=== PATIENT | male | born 1960 | race Caucasian/White ===

== ENCOUNTER → 2017-02-27 | Outpatient (CLI) | payer BC ==
[~2017-02-27] MED LIST: DXY100 PO; SNG10 PO; WARF3TAB PO; XPNINS1255 INH
[2017-02-27 10:01] LABS: BLOOD UREA NITROGEN 9 mg/dl (7-18); BUN/CREATININE RATIO 12.4 (10-20); CALCIUM 8.3 mg/dl (8.5-10.1); CARBON DIOXIDE 30 mmol/L (21-32); CHLORIDE 104 mmol/L (98-107); CREATININE 0.76 mg/dl (0.60-1.40); GLUCOSE 94 mg/dl (70-99); POTASSIUM 3.8 mmol/L (3.5-5.1); SODIUM 140 mmol/L (136-145)
[2017-02-27 10:07] LABS: CHOLESTEROL 283 mg/dl (0-200); CHOLESTEROL/HDL RATIO 4.3; HDL CHOLESTEROL 66 mg/dl; LDL CHOLESTEROL CALCULATED 199 mg/dl; TRIGLYCERIDES 90 mg/dl (0-150); VERY LOW DENSITY LIPOPROT CALC 18 mg/dl
[2017-02-27 10:31] LABS: ESTIMATED AVERAGE GLUCOSE 120 mg/dl; HA1C FLAG Normal (Normal)
== END | disposition home or self-care (01) ==
LOC: C.LAB1850 07:39
PROVIDERS: ATTEND Internal Medicine
DX: E78.00 Pure hypercholesterolemia, unspecified (principal); R73.03 Prediabetes; Z12.5 Encounter for screening for malignant neoplasm of prostate

== ENCOUNTER → 2017-03-02 | Outpatient (CLI) | payer BC | END | disposition home or self-care (01) | LOC: C.LAB1850 09:37 | PROVIDERS: ATTEND Internal Medicine | DX: Z00.00 Encounter for general adult medical examination without abnormal findings (principal); Z11.59 Encounter for screening for other viral diseases ==

== ENCOUNTER → 2017-08-17 | Outpatient (CLI) | payer BC ==
[2017-08-17 11:59] LABS: BASO % 1.2 %; BASO ABS # 0.08 K/uL (0-0.2); COMPLETE YES; EOS % 5.5 %; HEMATOCRIT 44.6 % (42-52); IG% 0.1 %; LYMPH % 23.4 %; MEAN CELL VOLUME 91.2 fL (80-100); MEAN CORPUSCULAR HEMOGLOBIN 29.7 pg (25-34); MEAN CORPUSCULAR HGB CONC 32.5 g/dl (32-36); MEAN PLATELET VOLUME 10.9 fL (7.4-10.4); NEUT % 57.8 %; PLATELET COUNT 240 K/uL (130-400); RED BLOOD COUNT 4.89 M/uL (4.7-6.1); WHITE BLOOD COUNT 6.85 K/uL (4.8-10.8)
[2017-08-17 12:19] LABS: BLOOD UREA NITROGEN 9 mg/dl (7-18); BUN/CREATININE RATIO 11.8 (10-20); CALCIUM 8.7 mg/dl (8.5-10.1); CARBON DIOXIDE 27 mmol/L (21-32); CHLORIDE 104 mmol/L (98-107); CHOLESTEROL 291 mg/dl (0-200); CREATININE 0.79 mg/dl (0.60-1.40); GLUCOSE 95 mg/dl (70-99); POTASSIUM 3.5 mmol/L (3.5-5.1); SODIUM 137 mmol/L (136-145)
[2017-08-17 12:23] LABS: CHOLESTEROL/HDL RATIO 3.7; ESTIMATED AVERAGE GLUCOSE 114 mg/dl; HA1C FLAG Normal (Normal); HDL CHOLESTEROL 78 mg/dl; LDL CHOLESTEROL CALCULATED 190 mg/dl; TRIGLYCERIDES 114 mg/dl (0-150); VERY LOW DENSITY LIPOPROT CALC 23 mg/dl
== END | disposition home or self-care (01) ==
LOC: C.LABPBG 07:42
PROVIDERS: ATTEND Internal Medicine
DX: R73.01 Impaired fasting glucose (principal); E78.00 Pure hypercholesterolemia, unspecified; R73.03 Prediabetes; D68.51 Activated protein C resistance; D72.829 Elevated white blood cell count, unspecified

== ENCOUNTER 2021-01-04 08:09 | Observation (INO) ==
--- NOTE | 2020-12-24 10:04 | PAT Medication Instructions ---
Medication Instructions Date of Service December 24, 2020 Home Medications Medication Instructions Recorded levalbuterol HCl 1.25 mg/3 mL 1.25 mg INH Q4H PRN #75 ml 11/17/19 solution for nebulization levalbuterol HCl 1.25 mg/3 mL solution for nebulization 1.25 mg INH Q4H PRN albuterol sulfate 2 puff INHALATION 6XD PRN budesonide-formoterol [Symbicort] 2 puff INHALATION BID PRN warfarin 3 mg PO QPM ASK your prescriber and surgeon warfarin 3 mg PO QPM Take morning of surgery With a small sip of water, OTHERWISE NOTHING TO EAT OR DRINK AFTER MIDNIGHT: levalbuterol HCl 1.25 mg/3 mL solution for nebulization 1.25 mg INH Q4H PRN (if needed) albuterol sulfate 2 puff INHALATION 6XD PRN (use if needed; please bring rescue inhaler with you to hospital day of surgery if possible) budesonide-formoterol [Symbicort] 2 puff INHALATION BID PRN (if needed) Take evening before surgery levalbuterol HCl 1.25 mg/3 mL solution for nebulization 1.25 mg INH Q4H PRN (if needed) albuterol sulfate 2 puff INHALATION 6XD PRN(if needed) budesonide-formoterol [Symbicort] 2 puff INHALATION BID PRN (if needed) Other Notes If you have any questions please call us at [phone] or [phone] or [phone] or [phone]
--- NOTE | 2020-12-28 08:49 | Anesthesiology Consultation ---
Date of Service December 28, 2020 Assessment & Plan (1) Encounter for pre-operative examination: - COVID screening: Per assessment on 12/28: Travel screen negative, no known COVID-19 positive contacts or current COVID-19 related symptoms. Surgeon shailesh gaspar preop COVID testing (done 12/28 at PAT visit). Awaiting results. - PCP office visit note (12/23/20): "He will undergo radical prostatectomy for prostate cancer 01/04/21.. They will manage his chronic coumadin with lovenox.. He is otherwise deemed acceptable risk for surgery and is cleared pending anesthesia approval." - Check coags AM DOS Chart Review Chart Review: Acceptable Risk for Surgery and Patient seen in Pre Admission Testing Teaching & Discussion Pre-Anesthesia Teaching/Discussion Notes: Instructed NPO after midnight before surgery,except medications with 15 cc of water. Medication instructions provided according to the [facility] guidelines. History Surgery Operation Date: 01/04/21 10:50 Proposed Procedures p Robotic Laparoscopic Prostatectomy - Dieter Robles MD Height/Weight Height: 5 ft 7 in Weight: 95 kg Allergies Allergy/AdvReac Type Severity Reaction Status Date / Time bacitracin Allergy Intermediate Rash Verified 12/28/20 08:46 Medications Home Medications Medication Instructions Recorded Confirmed Last Taken levalbuterol HCl 1.25 mg/3 mL 1.25 mg INH Q4H PRN #75 ml 11/17/19 12/23/20 Unknown solution for nebulization albuterol sulfate 2 puff INHALATION 6XD PRN 12/23/20 12/23/20 Unknown budesonide-formoterol [Symbicort] 2 puff INHALATION BID PRN 12/23/20 12/23/20 Unknown warfarin 3 mg PO QPM 12/23/20 12/23/20 Unknown Past Medical History Medical History DVT (deep venous thrombosis) RLE (2006) Factor 5 Leiden mutation, heterozygous Dx 2007 > on warfarin since Obesity Prostate cancer Pulmonary emboli 2006 Reactive airway disease controlled > inhaler PRN Tremor of right hand Exercise / Class Metabolic Activity II 4-5 Yardwork/Stairs/Walk up hill (one flight of stairs (no chest pain, no sob)) Past Family History Family History Father COPD (chronic obstructive pulmonary disease) Mother Nephrolithiasis Sister Myocardial infarction Brother Prostate cancer Other Coronary heart disease Hypertension Denies family history of Ovarian cancer Breast cancer Colorectal cancer Past Surgical History Surgical History H/O right knee surgery x2 (1986) r/t osteomyelitis History of knee surgery Left arthroscopy Past Anesthesia History No Hx of Anesthesia Complications and No Family Hx of Anesthesia Complications History of PONV No Hx of PONV and No Hx of Motion Sickness Social History Smoking Status: Never smoker Do You Dip or Chew Tobacco: No (Quit 2006) Hx Alcohol Use: Yes Alcohol type: beer and wine alcohol intake frequency: a few times a month Hx Substance Use: No Review of Systems Occasional snoring. No witnessed apnea events. Patient denies chest pain, shortness of breath, dyspnea on exertion, fever, chills, cough, wheezing, palpitations. Physical Exam Vital Signs VITALS BP 164/93 > recheck 149/84 P 70 TEMP 98.3 SP02 97%RA RESP 18 PHYSICAL Full cervical extension range of motion. Full TMJ range of motion. TMD 3 finger breaths Mallampati Score 3 Dentition: upper front/molar missing Lungs: clear throughout to auscultation Cardiac: regular rate and rhythm, no murmurs noted Spine: normal Carotid arteries: negative bruit Extremities: no edema Testing Laboratory Results 12/28/20 09:17 12/28/20 09:17 Urine Color Yellow 12/28/20 09:17 Urine Appearance Clear (Clear) 12/28/20 09:17 Urine pH 6.5 (4.5-7.5) 12/28/20 09:17 Ur Specific [place] 1.017 (1.000-1.030) 12/28/20 09:17 Urine Protein Negative (Negative) 12/28/20 09:17 Urine Glucose (UA) Negative (Negative) 12/28/20 09:17 Urine Ketones Negative (Negative) 12/28/20 09:17 Urine Nitrite Negative (Negative) 12/28/20 09:17 Ur Leukocyte Esterase Negative (Negative) 12/28/20 09:17 Blood Type A Positive 12/28/20 09:17 Antibody Screen NEGATIVE 12/28/20 09:17 Electrocardiogram Date: 12/28/20 NSR at 71bpm. unconfirmed report. Chest X-Ray Date: 12/28/20 FINDINGS: Cardiac mediastinal and hilar silhouettes are within normal limits. No pneumothorax, pleural effusion, airspace consolidation or overt pulmonary edema. Degenerative changes of the shoulders and spine. IMPRESSION: No acute process.
--- NOTE | 2020-12-28 09:41 | XRay Report ---
XR chest Pre-admission PA/Lat HISTORY: 60 years-old Male pat reactive airway disease COMPARISON: Chest radiograph 09/12/2015 TECHNIQUE: PA and lateral views of the chest FINDINGS: Cardiac mediastinal and hilar silhouettes are within normal limits. No pneumothorax, pleural effusion , airspace consolidation or overt pulmonary edema. Degenerative changes of the shoulders and spine. IMPRESSION: No acute process. ACT 112: Negative or not required by law. The above report was generated using voice recognition software. It may contain grammatical, syntax o r spelling errors. Electronically signed by: Julio Renteria M.D. 12/28/2020 9:40 AM
[2020-12-28 10:16] LABS: Basophils # (auto) 0.06 K/uL (0-0.2); Basophils % (auto) 0.8 %; Eosinophils % (auto) 6.3 %; Hematocrit (blood only) 43.5 % (42-52); Hemoglobin 14.2 g/dL (14.0-18.0); Immature Granulocytes # (auto) 0.01 K/uL (0.00-0.02); Immature Granulocytes % (auto) 0.1 %; Lymphocytes # (auto) 1.82 K/uL (1.2-3.4); Lymphocytes % (auto) 22.8 %; Mean Corpuscular Hemoglobin 29.5 pg (25-34); Mean Corpuscular Hgb Conc 32.6 g/dL (32-36); Mean Corpuscular Volume 90.4 fL (80-100); Mean Platelet Volume 10.5 fL (7.4-10.4); Monocytes # (auto) 0.77 K/uL (0.11-0.59); Monocytes % (auto) 9.6 %; Neutrophils # (auto) 4.83 K/uL (1.4-6.5); Neutrophils % (auto) 60.4 %; Platelet Count 205 K/uL (130-400); RDW Coefficient of Variation 13.2 % (11.5-14.5); RDW Standard Deviation 43.3 fL (36.4-46.3); Red Blood Count 4.81 M/uL (4.7-6.1); White Blood Count 7.99 K/uL (4.8-10.8)
[2020-12-28 10:24] LABS: BUN Creatinine Ratio 13.1 (10-20); Calcium 8.4 mg/dl (8.5-10.1); Creatinine Clr Calc Pharmacy 102.7 ml/min; Est GFR (African American) 110.1; Potassium 4.1 mmol/L (3.5-5.1)
[2020-12-28 10:30] LABS: Appearance Urine Clear (Clear); Bilirubin Urine Negative (Negative); Blood Urine Negative (Negative); Color Urine Yellow; Glucose Urine UA Negative (Negative); Ketones Urine Negative (Negative); Leukocyte Esterase Urine Negative (Negative); Nitrite Urine Negative (Negative); Protein Urine Negative (Negative); Specific Gravity Urine 1.017 (1.000-1.030); Urobilinogen Urine Negative (Negative); pH Urine 6.5 (4.5-7.5)
--- NOTE | 2020-12-29 06:33 | Electrocardiogram Report ---
Test Reason : Blood Pressure : / mmHG Vent. Rate : 071 BPM Atrial Rate : 071 BPM P-R Int : 166 ms QRS Dur : 084 ms QT Int : 388 ms P-R-T Axes : 067 064 084 degrees QTc Int : 421 ms Normal sinus rhythm Normal ECG When compared with ECG of 12-SEP-2015 01:34, No significant change was found Confirmed by Tyrel Franco ([id number]) on 12/29/2020 6:33:35 AM Referred By: Dieter Robles Confirmed By:Tyrel Franco
[~2021-01-04 08:09] MED LIST changes: -DXY100 PO; +HEPARIN SOD 5,000 UNIT/0.5 ML VIAL SQ SCH; +LACTATED RINGER'S 1,000 ML IV SCH; -SNG10 PO; -WARF3TAB PO; -XPNINS1255 INH
[2021-01-04 08:55] LABS: INR 1.1 (0.9-1.1); Partial Thromboplastin Time 25.7 Seconds (21.0-31.0); Prothrombin Time 10.7 Seconds (9.0-12.0)
[2021-01-04] MEDS ORDERED: ATROPINE SULFATE 0.1 MG/ML 10ML SYR IV PRN (09:28)
[2021-01-04] MEDS ORDERED: ONDANSETRON INJ 2 MG/ML 2 ML VIAL IV PRN ×2 (09:28→15:29)
[2021-01-04] MEDS ORDERED: ePHEDrine sulfate 50 MG/ML AMP IV PRN (09:28)
--- NOTE | 2021-01-04 09:45 | History & Physical Bridge Note ---
Date of Service January 04, 2021 History & Physical Bridge Note I have examined the patient, reviewed the History & Physical and in the interval since the performance of the History & Physical I have noted the following changes of clinical significance: no changes noted
[2021-01-04] MEDS ORDERED: BUPIVACAINE 0.5 % 5 MG/1 ML MPF 30ML VIAL ONE (09:50)
[2021-01-04] MEDS ORDERED: ASPIRIN 81 MG ECTAB PO ONE (09:56)
[2021-01-04] MEDS ORDERED: ASPIRIN 81 MG ECTAB PO SCH (10:00)
[2021-01-04] MEDS ORDERED: fentaNYL citrate 100 MCG/2 ML VIAL ONE (10:03)
[2021-01-04] MEDS ORDERED: MIDAZOLAM HCL 1 MG/ML 2ML VIAL ONE (10:03)
[2021-01-04] MEDS ORDERED: BELLADONNA/OPIUM SUPP 60 MG SUPP PR ONE (10:44)
[2021-01-04] MEDS ORDERED: ROCURONIUM BROMIDE 10 MG/ML 5 ML VIAL IV ONE (11:23)
[2021-01-04] MEDS ORDERED: FLOSEAL HEMOSTATIC MATRIX 10ML TOP ONE (11:37)
[2021-01-04] MEDS ORDERED: SURGICEL ABSORB HEMOSTAT 2IN X 14IN TOP ONE (11:56)
[2021-01-04] MEDS ORDERED: PROPOFOL IV EMULSION 10 MG/ML 20 ML VIAL IV ONE (12:56)
[2021-01-04] MEDS ORDERED: NEOSTIGMINE METHYLSULFATE 5 MG/5 ML SYR ONE (12:56)
[2021-01-04] MEDS ORDERED: HYDROmorphone INJ 2 MG/ML SYR/VIAL ONE (12:56)
[2021-01-04] MEDS ORDERED: DEXAMETHASONE SOD INJ 4 MG/ML VIAL ONE (12:56)
[2021-01-04] MEDS ORDERED: GLYCOPYRROLATE 0.2 MG/ML VIAL ONE (12:56)
[2021-01-04] MEDS ORDERED: ONDANSETRON INJ 2 MG/ML 2 ML VIAL ONE (12:56)
--- NOTE | 2021-01-04 13:40 | Operative Report ---
PG Post Operative Report Pre & Post Diagnosis Operation Date: 01/04/21 10:50 Pre-Op Diagnosis: Prostate Cancer Post-Op Diagnosis: Prostate Cancer I identified the patient and participated in the time-out.: Yes Procedure Operation Date: 01/04/21 10:50 Actual Procedures p Robotic Assisted Laparoscopic Prostatectomy(Not Applicable) - Dieter Robles MD Surgeon Levar Robles MD Pack Mule Worker Cyndy Regan Estimated Blood Loss 100 Findings Consistent with Post-Op Diagnosis Specimens 1. Periprostatic fat 2. Left pelvic lymph nodes 3. Right pelvic lymph nodes 4. Prostate and seminal vesicles Description of Procedure The patient was identified in the preoperative holding area, appropriate informed consents were reviewed and completed, and he was transported to the operating suite. Subcutaneous heparin was administered in the pre-operative holding area. Upon arrival in the operating suite, he received appropriate antibiotics and general anesthesia. He was positioned in dorsal lithotomy, a B&O suppository was inserted after digital rectal exam, and he was prepped and draped in standard fashion. A Goins catheter was inserted in the sterile field. A Veress needle was passed per umbilicus with uniform insufflation of the abdomen to 15mmHg. He was placed in steep Trendelenburg position. A periumbilical incision was then made to accommodate a 12mm Visiport with 10mm 0degree laparoscope. Inspection of the abdomen was carried out, and there was no evidence of traumatic entry or injury secondary to the Veress needle. After confirming a clear anterior abdominal wall, ports were subsequently placed in standard robotic prostatectomy fashion without incident. To begin the robotic portion of the case, the left lateral aspect of the sigmoid was mobilized off of the left pelvic side wall to allow the pouch of Anuj to be appropriately visualized. I then made an incision in the pouch of Anuj, overlying the seminal vesicles. Both SVs as well as the ampullae of the vasa were entirely dissected, with the vasa transected 3cm from the prostate. The medial umbilical ligaments were then controlled with bipolar electrocautery just inferior to the umbilicus. Following cauterization, they were divided utilizing monopolar cautery. A peritoneal incision was carried from this locati on to the medial aspect of the internal inguinal rings bilaterally with care to avoid opening through the ring. This incision was concluded when the vas deferens was reached. Dissection of the bladder and prostate off of the posterior aspect of the pubic arch was completed allowing full visualization of the prostate. The fat overlying the prostate was removed en bloc and passed off the table as a specimen labeled "periprostatic fat". The endopelvic fascia was cleared during this portion of the procedure, and subsequently opened - first on the right and then the left. The incision through the endopelvic fascia began near the prostate-bladder junction and was carried to the apex with extreme care to preserve all lateral levator musculature as well as the periurethral musculature and sphincter complex. I additionally preserved the puboprostatic ligaments. I then controlled the DVC with a 3-0 V-lock suture in overlapping/figure of 8 fashion. The lymph node dissection was then conducted. External iliac vessels were identified on the pelvic side wall. The packet of fat and lymphatic tissue that resides just under the iliac vein was elevated and off of the vein with a split and roll technique. The packet was dissected laterally to the circumflex vein and distally to the obturator nerve which was preserved. The proximal aspect of the packet was carried towards the bifurcation of the iliac vessels. A combination of monopolar and bipolar cautery were used to assist with control. After completing the dissection on both sides, the packets were collected and passed off of the table as specimens labeled "pelvic lymph nodes". My attention then returned to the prostate, with identification of the bladder neck aided by gentle traction on the Goins catheter and lateral to medial pressure at the presumed level of the bladder neck with the robotic instruments. An anterior cystotomy was made, the Goins balloon deflated and the catheter guided through the incision to allow anterior retraction. I attempted to preserve maximal bladder neck musculature as I circumferentially dissected around the bladder neck. After incision through the posterior aspect of the mucosa, the dissection was carried through detrusor muscle until the bilateral ampullae of the vasa were identified. The previously dissected vasa and SVs were brought through the incision and used to elevated the prostate anteriorly. A posterior plane behind the prostate was then developed - splitting Denonvilliers's fascia. This dissection was carried as far as possible towards the apex as well as far as possible laterally. An incision in the lateral prostatic fascia was then made bilaterally to facilitate control of the vascular pedicles and preservation of the nerve bundles. Vasculature running along the posterior/lateral aspect of the prostate was preserved as well as the tissue containing the nerves. Of note, his biopsy pathology had relatively extensive disease with radha 9 on the left. This guided a cautious approach the neurovascular bundles. The pedicles were then controlled with a series of Weck clips. The apical attachments of the prostate were remaining at that stage. The DVC was divided after control with bipolar cautery over the prostate. Continuous inspection from anterior and lateral views allowed me to closely follow the apical contour of the prostate and maximally preserve urethral length and tissue. The prostate was entirely freed at that point, and collected in an EndoCatch bag before being moved out of the field of vision. Hemostasis was confirmed and anastomosis of the bladder and urethra was completed utilizing a double armed V- Lock stitch. A new Goins catheter was inserted and the anastomosis tested with irrigation. There was no evidence of leak. A erica style stitch was placed bilaterally to functionally marsupialize the area of the lymph node dissection. The robot was undocked, the specimen extracted through expansion of the latonya- umbilical camera port. Of note, he had an umbilical hernia identified prior to surgery, I was able to expand this opening and closed the hernia primarily. The fascia was closed with a series of 0-Ethibond figure of 8 stitches. The right bilingual administrative assistant port was closed in two layers - with a figure of 8 0-Vicryl to reapproximate the fascia followed by 4-0 Monocryl to close the skin. Monocryl was used to close all other skin incisions. All wounds were dressed with Dermabond. The case was concluded and the patient taken to the PACU in stable condition. Cyndy Govea assisted from incision to closure I attest to the content of the Intraoperative Record and any orders documented therein. Any exceptions are noted below.
[2021-01-04] MEDS: fentaNYL citrate 100 MCG/2 ML VIAL IV PRN ×2 (13:52→13:57)
[2021-01-04] MEDS: HYDROmorphone INJ 1 MG/ML SYRINGE IV PRN ×7 (14:02→14:35)
[2021-01-04 14:29] LABS: Basophils # (auto) 0.03 K/uL (0-0.2); Basophils % (auto) 0.2 %; Eosinophils # (auto) 0.02 K/uL (0-0.5); Eosinophils % (auto) 0.1 %; Hematocrit (blood only) 42.9 % (42-52); Hemoglobin 14.4 g/dL (14.0-18.0); Immature Granulocytes # (auto) 0.02 K/uL (0.00-0.02); Immature Granulocytes % (auto) 0.1 %; Lymphocytes # (auto) 0.98 K/uL (1.2-3.4); Lymphocytes % (auto) 7.1 %; Mean Corpuscular Hemoglobin 29.9 pg (25-34); Mean Corpuscular Volume 89.2 fL (80-100); Mean Platelet Volume 10.5 fL (7.4-10.4); Monocytes % (auto) 1.5 %; Neutrophils # (auto) 12.52 K/uL (1.4-6.5); Platelet Count 233 K/uL (130-400); RDW Coefficient of Variation 12.8 % (11.5-14.5); RDW Standard Deviation 41.5 fL (36.4-46.3); Red Blood Count 4.81 M/uL (4.7-6.1); White Blood Count 13.77 K/uL (4.8-10.8)
[2021-01-04 14:41] LABS: Mean Corpuscular Hgb Conc 33.6 g/dL (32-36)
--- NOTE | 2021-01-04 14:46 | Anesthesiology Progress Note ---
Date of Service January 04, 2021 Anesthesia Post Procedure Vital Signs Vital Signs: Temp Pulse Pulse Resp BP BP Pulse Ox 01/04/21 14:30 36.5 C 71 14 121/72 99 01/04/21 14:20 74 14 121/86 100 01/04/21 14:10 73 14 122/82 100 01/04/21 14:00 81 14 142/89 H 99 01/04/21 13:50 83 14 129/94 100 01/04/21 13:41 36.2 C L 90 14 125/89 99 01/04/21 08:38 37.1 C 78 20 140/86 97 Pain Intensity Abdomen: Pain Intensity: 5 Transfer of Care Handoff Completed per policy Notes Mental Status: alert / awake / arousable and participated in evaluation Patient Amnestic to Procedure: Yes Nausea / Vomiting: adequately controlled Pain: improving with treatment Airway Patency, RR, SpO2: stable & adequate BP & HR: stable & adequate Hydration State: stable & adequate Anesthetic Complications: no major complications apparent and Pt Satisfied with anesthetic care
[2021-01-04 14:53] LABS: BUN Creatinine Ratio 9.6 (10-20); Calcium 8.6 mg/dl (8.5-10.1); Creatinine Clr Calc Pharmacy 80.6 ml/min; Est GFR (African American) 89.4; Est GFR (Non-African American) 77.1
[2021-01-04] MEDS ORDERED: ACETAMINOPHEN 325 MG TAB PO PRN (15:29)
[2021-01-04] MEDS ORDERED: BUDESONIDE/FORMOTEROL FUMARATE 80/4.5 60 PUFFS/INHALER INH PRN (15:29)
[2021-01-04] MEDS ORDERED: LEVALBUTEROL HCL 1.25 MG/3 ML NEB INH PRN (15:29)
[2021-01-04] MEDS ORDERED: MoRPHine SULFATE 2 MG/ML CARP IV PRN (15:29)
[2021-01-04] MEDS ORDERED: ALBUTEROL HFA 8 GM INHALER INH PRN (15:29)
[2021-01-04] MEDS ORDERED: MoRPHine SULFATE 4 MG/ML 1 ML CARP\\VIAL IV PRN (15:29)
[2021-01-04] MEDS ORDERED: oxyCODONE HCL IR 5 MG TAB (IMMEDIATE RELEASE) PO PRN (15:29)
[2021-01-04] MEDS: LACTATED RINGER'S 1,000 ML IV SCH (15:55)
[2021-01-04] MEDS: ceFAZolin 2000MG 2,000 MG/15 ML SYR IV SCH (17:31)
[2021-01-04] MEDS: ENOXAPARIN INJ 40 MG/0.4 ML SYR SQ SCH (17:32)
[2021-01-05] MEDS: ceFAZolin 2000MG 2,000 MG/15 ML SYR IV SCH (01:34)
[2021-01-05] MEDS: LACTATED RINGER'S 1,000 ML IV SCH ×3 (01:35→21:40)
[2021-01-05] MEDS: oxyCODONE HCL IR 5 MG TAB (IMMEDIATE RELEASE) PO PRN (04:10)
[2021-01-05] MEDS ORDERED: bisacodyL 10 MG SUPP PR PRN (08:12)
[2021-01-05] MEDS ORDERED: bisacodyL 10 MG SUPP PR STA (08:12)
--- NOTE | 2021-01-05 08:17 | Urology Progress Note ---
Date of Service January 05, 2021 Assessment & Plan (1) Prostate cancer: abdomen distended, uncomfortable axr now npo labs stable started back on lovenox already - factor v leiden hx requires anticoagulation Admission and Anticipated Discharge Date Admission Date: January 04, 2021 Subjective significant, diffuse abdominal discomfort and distention no nausea/vomiting no flatus yet objective parameters appropriate - labs stable clear urine Physical Exam Physical Exam: incisions appropriate abdomen, firm, distended urine clear Results & Data ([facility]) Vital Signs (Past 12 Hours) Vital Signs Temp Pulse Resp BP Pulse Ox 01/05/21 07:17 37.0 C 76 16 141/84 H 76 L 01/05/21 02:52 36.9 C 94 H 16 124/78 95 01/04/21 22:26 36.8 C 87 16 134/83 96 PG Care Time/CCT Total # of Minutes Spent Total Time Spent with Patient: Total time spent is greater than 50% in coor dination of care (as documented) at patient's floor/unit and/or counseling patient: Coding Level of Care Code 87799 Subseq Hosp Care Lvl 3 Diagnoses Prostate cancer C61
[2021-01-05] MEDS ORDERED: KETOROLAC 30 MG/ML VIAL IV ONE (08:18)
[2021-01-05 08:26] LABS: Basophils # (auto) 0.02 K/uL (0-0.2); Basophils % (auto) 0.2 %; Eosinophils # (auto) 0.05 K/uL (0-0.5); Eosinophils % (auto) 0.4 %; Hematocrit (blood only) 45.7 % (42-52); Hemoglobin 15.1 g/dL (14.0-18.0); Immature Granulocytes # (auto) 0.02 K/uL (0.00-0.02); Immature Granulocytes % (auto) 0.2 %; Lymphocytes # (auto) 2.22 K/uL (1.2-3.4); Lymphocytes % (auto) 18.5 %; Mean Corpuscular Hemoglobin 29.8 pg (25-34); Mean Corpuscular Volume 90.3 fL (80-100); Mean Platelet Volume 10.7 fL (7.4-10.4); Monocytes # (auto) 1.68 K/uL (0.11-0.59); Neutrophils # (auto) 7.98 K/uL (1.4-6.5); Neutrophils % (auto) 66.7 %; Platelet Count 285 K/uL (130-400); RDW Coefficient of Variation 13.2 % (11.5-14.5); RDW Standard Deviation 43.5 fL (36.4-46.3); Red Blood Count 5.06 M/uL (4.7-6.1); White Blood Count 11.97 K/uL (4.8-10.8)
[2021-01-05 08:58] LABS: BUN Creatinine Ratio 9.8 (10-20); Calcium 9.2 mg/dl (8.5-10.1); Creatinine Clr Calc Pharmacy 92.1 ml/min; Est GFR (African American) 105.1; Est GFR (Non-African American) 90.6; Potassium 4.3 mmol/L (3.5-5.1)
--- NOTE | 2021-01-05 09:45 | XRay Report ---
KUB CLINICAL HISTORY: distention post op COMPARISON STUDY: None. FINDINGS: There is moderate gaseous distention of the right colon, measuring approximately 7.4 cm in caliber. There is mild gaseous distention of the remainder of the colon. No dilated loops of small tadeo wel are identified. There is a paucity of gas within the rectum. There are no unexpected radiopaque f oreign bodies. IMPRESSION: Moderate gaseous distention of the right colon and mild gaseous distention of the remain elysia of the colon. Paucity of rectal gas. No small bowel dilatation. The findings favor a postoperativ e ileus. A distal colonic obstruction is considered less likely. ACT 112: Negative or not required by law. Electronically signed by: Faustino Sarah M.D. 01/05/2021 9:43 AM
[2021-01-05] MEDS: KETOROLAC TROMETHAMINE 15 MG/ML VIAL IV PRN (18:00)
[2021-01-05] MEDS: ENOXAPARIN INJ 40 MG/0.4 ML SYR SQ SCH (18:00)
[2021-01-05] MEDS: SIMETHICONE 80 MG CHEW PO PRN (20:46)
[2021-01-06] MEDS: SIMETHICONE 80 MG CHEW PO PRN ×3 (02:17→14:16)
[2021-01-06] MEDS: KETOROLAC TROMETHAMINE 15 MG/ML VIAL IV PRN (02:19)
[2021-01-06] MEDS: LACTATED RINGER'S 1,000 ML IV SCH (07:43)
--- NOTE | 2021-01-06 08:17 | Urology Progress Note ---
Date of Service January 06, 2021 Assessment & Plan (1) Prostate cancer: Seems to have turned the corner over night will try food this AM if he tolerates this well, we will consider dc home this afternoon labs pending back on anticoagulation Admission and Anticipated Discharge Date Admission Date: January 04, 2021 Subjective subjectively much better minimal pain passing flatus much less abdominal pressure asking for food anxious to go home Physical Exam Physical Exam: abd moderately distended - much decreased from yesterday soft non-tender incisions appropriate urine clear Results & Data ([facility]) Vital Signs (Past 12 Hours) Vital Signs Temp Pulse Resp BP BP Pulse Ox 01/06/21 07:31 37.2 C 87 16 113/70 92 01/05/21 23:06 37.6 C H 109 H 21 110/74 91 PG Care Time/CCT Total # of Minutes Spent Total Time Spent with Patient: Total time spent is greater than 50% in coordination of care (as documented) at patient's floor/unit and/or counseling patient: Coding Level of Care Code 00343 Subseq Hosp Care Lvl 2 Diagnoses Prostate cancer C61
[2021-01-06 08:30] LABS: Basophils # (auto) 0.03 K/uL (0-0.2); Basophils % (auto) 0.2 %; Eosinophils # (auto) 0.09 K/uL (0-0.5); Eosinophils % (auto) 0.6 %; Hematocrit (blood only) 37.1 % (42-52); Hemoglobin 12.1 g/dL (14.0-18.0); Immature Granulocytes # (auto) 0.04 K/uL (0.00-0.02); Immature Granulocytes % (auto) 0.3 %; Lymphocytes # (auto) 1.47 K/uL (1.2-3.4); Lymphocytes % (auto) 9.5 %; Mean Corpuscular Hemoglobin 29.4 pg (25-34); Mean Corpuscular Hgb Conc 32.6 g/dL (32-36); Mean Corpuscular Volume 90.3 fL (80-100); Mean Platelet Volume 10.4 fL (7.4-10.4); Monocytes # (auto) 1.85 K/uL (0.11-0.59); Neutrophils % (auto) 77.4 %; Platelet Count 185 K/uL (130-400); RDW Coefficient of Variation 13.3 % (11.5-14.5); RDW Standard Deviation 44.4 fL (36.4-46.3); Red Blood Count 4.11 M/uL (4.7-6.1); White Blood Count 15.48 K/uL (4.8-10.8)
[2021-01-06 08:40] LABS: BUN Creatinine Ratio 14.6 (10-20); Calcium 8.4 mg/dl (8.5-10.1); Creatinine Clr Calc Pharmacy 107.4 ml/min; Est GFR (African American) 112.9; Est GFR (Non-African American) 97.4; Potassium 3.8 mmol/L (3.5-5.1)
[2021-01-06] MEDS: oxyCODONE HCL IR 5 MG TAB (IMMEDIATE RELEASE) PO PRN (14:16)
[2021-01-06] MEDS: ENOXAPARIN INJ 40 MG/0.4 ML SYR SQ SCH (17:37)
--- NOTE | 2021-01-11 13:07 | Discharge Summary ---
Date of Service January 11, 2021 Admission HPI Per Admitting Provider Patient presented to the hospital for definitive treatment of his prostate cancer in the form of robotic prostatectomy Principal Diagnosis prostate cancer Discharge Data Allergies Allergy/AdvReac Type Severity Reaction Status Date / Time bacitracin Allergy Intermediate Rash Verified 01/04/21 08:36 Procedures Performed Operation Date: 01/04/21 10:50 Actual Procedures p Robotic Assisted Laparoscopic Prostatectomy(Not Applicable) - iDeter Robles MD Hospital Course (1) Prostate cancer: 60-year-old male with factor V Leiden mutation and history of coagulopathy presenting to treat his prostate cancer via robotic prostatectomy Details of the surgery as dictated previously in the operative report, however in summary he tolerated the surgery very well On postoperative day #1 he was moderately distended, KUB was obtained which showed colonic distention without any evidence of small bowel distention. Fortunately began to pass flatus that afternoon and had substantial relief of his pressure. By postoperative day #2 he was in stable condition, tolerating a diet, ambulating and ready for discharge home. He was discharged home in stable condition with a Goins catheter in place Total Time Total Time Spent Total Time Spent (In Minutes): 15 Total Time Includes: Examination of the Patient, Discharge Planning, Medication Reconciliation, Communication With Other Providers and Other Discharge Plan Discharge Items Patient Disposition: Home - Self-Care Reason For Visit: Prostate Cancer Discharge Diagnosis: Prostate Cancer Activity: Per Instructions section Lifting: No more than 25 pounds Bathing Comment: No tub baths or soaks. Ok to shower after discharge. Sexual Activity: Wait until after follow-up appointment Exercise/Sports: Wait until after follow-up appointment Driving/Machine Use: Do not drive while taking prescription pain medication. Non-emergency contact: Surgeon and Urologist Call non-emergency contact if: your pain is not controlled, you have a fever, your temperature is above 101, your wound has increased redness, your wound has increased drainage and your wound pain has increased Follow-up/Referrals: ProAndre MD [Primary Care Provider] - 01/14/21 3:00 pm Dieter Robles MD [Physician] - 01/19/21 11:00 am [facility],Nurse [FAKE FOR SCHEDULES] - 01/10/21 1:00 pm Diet: Regular Addtl Attending Provider Instructions: Please take all medications as prescribed and keep all follow-ups as scheduled. Please call our office at [phone] with any questions, concerns or need to reschedule appointments for any reason. We are happy to assist you Please resume your Warfarin tomorrow (01/07). Continue Lovenox. Please go to the lab on Wednesday 01/10 for an INR. Further instructions pending INR. We have sent an antibiotic to your pharmacy of choice. Please begin antibiotic as prescribed the day BEFORE your scheduled voiding trial at [facility]. Please continue antibiotic every 12 hours through the day AFTER your voiding trial. Activity: We recommend having someone with you for the first few days after surgery to help care for you. For the first 2 weeks after surgery, we would like you to get up and walk around your house. However, we recommend limit physical activity that would increase your heart rate. This will allow your body to rest and heal. Take naps if you feel tired. Don't lift anything heavier than 10 pounds, mow the law or ride a bicycle until your follow-up appointment. Please avoid long car rides. Home Care: Unless directed otherwise, drink 6 to 8 glasses of water a day (enough to keep your urine light colored). This will also help keep a healthy flow of urine. We recommend using a stool softener for the first two weeks to avoid constipation. Goins Catheter or Suprapubic Catheter care: Keep the catheter well secured with either a leg back or leg strap with large bag. Empty your bag when it's about half full. You may notice some blood in the bag. This is normal after surgery and while the catheter is in place. Use mild soap (such as Dove or Dial) and water to wash the catheter and the head of your penis daily, or more frequently if needed. Return to your normal diet, we encourage good protein intake to promote healing. You may shower as normal. Please avoid tub baths or soaking until catheter removed and incisions well healed. Wearing sweat pants while you have the catheter is recommended, they will be more comfortable. Follow-up Your follow up appointments for having your catheter removed, and follow up with your physician should already be scheduled. If you have any questions regarding this, please contact our office. Your final pathology report will be discussed at your physician follow-up appointment. Call [facility] at [phone] right away if you have any of the following: Chest pain or trouble breathing (call 911 or go to the hospital) Fever of 101F or higher, uncontrolled vomiting Heavy bleeding, clots, or bright red blood from the catheter Catheter that falls out or stops draining Foul-smelling discharge from your catheter Redness, swelling, warmth, or increased pain at your incision site Drainage, pus, or bleeding from your incision Pending Studies at Discharge: Yes Studies:: Pathology Stand-Alone Forms: [facility] [email or web address], Smoking Cessation Medications and DC Order Prescriptions: New oxycodone-acetaminophen [Percocet] 5-325 mg tablet 1 tab PO Q8H PRN (Reason: pain) Qty: 14 RF: 0 docusate sodium [Colace] 100 mg capsule 100 mg PO BID Qty: 60 RF: 0 Continued levalbuterol HCl 1.25 mg/3 mL solution for nebulization 1.25 mg INH Q4H PRN (Reason: shortness of breath or wheezing) Qty: 75 RF: 2 enoxaparin [Lovenox] 40 mg/0.4 mL syringe 40 mg subcut DAILY Qty: 4 RF: 0 warfarin 3 mg tablet 3 mg PO QPM RF: 0 budesonide-formoterol [Symbicort] 80-4.5 mcg/actuation HFA aerosol inhaler 2 puff inhalation BID PRN (Reason: Wheezing) RF: 0 albuterol sulfate 90 mcg/actuation Hfa Aerosol Inhaler 2 puff INHALATION 6XD PRN (Reason: Wheezing) RF: 0 Discharge Orders: Discharge Order (Routine); Ordered 01/06/21 Ordered By: Giselle Helm Admission Data Admit Date/Time: 01/04/21 13:43 Attending Provider: Dieter Robles Admit Provider: Dieter Robles Primary Care Provider: Andre Krishnamurthy Other Interventions: Discharge Summary Assessment (RN) Last Done: 01/06/21 16:50 Coding Level of Care Code D/C Day Management <30 mins Diagnoses Prostate cancer C61
== END 2021-01-06 18:31 | disposition home or self-care (01) ==
LOC: ASU 08:09 → INTOOBSV 13:43 → 3E 13:43